=== PATIENT | male | born 1965 | race Caucasian/White ===

== ENCOUNTER 2020-03-16 16:51 | Emergency (ER) | payer OTHER ==
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
== END 2020-03-16 18:16 | disposition home or self-care (01) ==
LOC: JP.ED 16:51
DX: D18.09 Hemangioma of other sites (principal); Z88.0 Allergy status to penicillin
CPT/HCPCS: 99283